=== PATIENT | female | born 1960 | race Caucasian/White ===

== ENCOUNTER → 2017-10-10 | Outpatient (CLI) | payer BC ==
[~2017-10-10] MED LIST: SIMV-13
[2017-10-10 13:09] LABS: Basophils # (auto) 0.1 uL; Basophils % (auto) 0.9 % (0.0-2.0); Eosinophils # (auto) 0.1 uL; Eosinophils % (auto) 2.1 % (0.0-7.0); Hematocrit 44.6 % (36.0-46.0); Lymphocytes # (auto) 2.3 uL; Lymphocytes % (auto) 39.9 % (10.0-50.0); Mean Corpuscular Hemoglobin 28.4 pg (28.0-32.0); Mean Corpuscular Hgb Conc. 33.6 g/dL (32.0-36.0); Mean Corpuscular Volume 84.6 fL (80.0-100.0); Monocytes # (auto) 0.5 uL; Monocytes % (auto) 8.6 % (0.0-12.0); Neutrophils # (auto) 2.8 uL; Neutrophils % (auto) 48.5 % (37.0-80.0); Nucleated Red Blood Cells % 0.1 %; Platelet Count (auto) 277 10^3/uL (140-450); Red Blood Cells 5.27 10^6/uL (4.0-5.20); Red Cell Distribution Width 14.1 % (11.8-14.3); White Blood Cell 5.8 10^3/uL (4.4-10.8)
[2017-10-10 13:31] LABS: Albumin 3.8 g/dL (3.4-5.0); Bilirubin, Total 0.3 mg/dL (0.2-1.0); Calcium 8.3 mg/dL (8.5-10.1); Potassium 3.9 mmol/L (3.5-5.1); Total Protein 7.3 g/dL (6.4-8.2)
== END | disposition home or self-care (01) ==
LOC: LAB 12:14
PROVIDERS: ATTEND Internal Medicine
DX: Z12.11 Encounter for screening for malignant neoplasm of colon (principal); I70.209 Unspecified atherosclerosis of native arteries of extremities, unspecified extremity
CPT/HCPCS: 36415; 80053; 80061; 82274; 82306; 84443; 85025

== ENCOUNTER → 2017-10-14 | Outpatient (CLI) | payer BC | END | disposition home or self-care (01) | LOC: LAB 08:58 | PROVIDERS: ATTEND Internal Medicine | DX: Z12.11 Encounter for screening for malignant neoplasm of colon (principal); I70.209 Unspecified atherosclerosis of native arteries of extremities, unspecified extremity | CPT/HCPCS: 82274 ==

== ENCOUNTER → 2018-06-02 | Day surgery (SDC) | payer BC ==
[2018-05-30 10:24] LABS: Basophils # (auto) 0.1 uL; Basophils % (auto) 1.2 % (0.0-2.0); Eosinophils # (auto) 0.1 uL; Eosinophils % (auto) 1.7 % (0.0-7.0); Hemoglobin 16.1 g/dL (12.2-16.2); Lymphocytes # (auto) 2.1 uL; Lymphocytes % (auto) 28.4 % (10.0-50.0); Mean Corpuscular Hemoglobin 28.8 pg (28.0-32.0); Mean Corpuscular Hgb Conc. 33.5 g/dL (32.0-36.0); Mean Corpuscular Volume 85.7 fL (80.0-100.0); Monocytes # (auto) 0.6 uL; Monocytes % (auto) 8.5 % (0.0-12.0); Neutrophils # (auto) 4.4 uL; Neutrophils % (auto) 60.2 % (37.0-80.0); Nucleated Red Blood Cells % 0.2 %; Platelet Count (auto) 304 10^3/uL (140-450); Red Blood Cells 5.59 10^6/uL (4.0-5.20); Red Cell Distribution Width 13.9 % (11.8-14.3); White Blood Cell 7.4 10^3/uL (4.4-10.8)
[2018-05-30 10:46] LABS: INR 0.98 (0.9-1.15); Partial Thromboplastin Time 26.2 sec (23.78-33.04); Prothrombin Time 10.5 sec (9.27-12.13)
[~2018-06-02] VITALS: Ht 170.2 cm; Wt 111.1 kg
[~2018-06-02] MED LIST changes: +ASCO500T11 PO; +CHOL20007 PO; -SIMV-13; +SODIUM CHLORIDE LOCK 10 ML ONE; +diphenhdrAMINE HCL 50 MG/1 ML VL ONE
[2018-06-02] MEDS: fentaNYL CITRATE 100 MCG/2 ML VL ONE ×3 (11:54→12:02)
[2018-06-02] MEDS: MIDAZOLAM HCL 5 MG/ML-1ML VIAL ONE ×3 (11:54→12:02)
[2018-06-02 12:49] VITALS: BP 137/93
== END | disposition home or self-care (01) ==
LOC: SUR 09:49
PROVIDERS: ATTEND Internal Medicine Gastroenterology
DX: Z12.11 Encounter for screening for malignant neoplasm of colon (principal); K64.8 Other hemorrhoids; E66.9 Obesity, unspecified; Z68.38 Body mass index [BMI] 38.0-38.9, adult; Z87.891 Personal history of nicotine dependence; Z98.890 Other specified postprocedural states
CPT/HCPCS: 36415; 45378; 85025; 85610; 85730; J1200; J2250; J3010; J7030; 99152

== ENCOUNTER 2018-10-30 19:13 | Emergency (ER) | payer BC ==
[~2018-10-30] VITALS: Ht 170.2 cm; Wt 113.4 kg
[~2018-10-30 19:13] MED LIST changes: -SODIUM CHLORIDE LOCK 10 ML ONE; -diphenhdrAMINE HCL 50 MG/1 ML VL ONE
[2018-10-30 20:09] VITALS: BP 164/83
== END 2018-10-30 22:53 | disposition left against medical advice (07) ==
LOC: ER 19:22
DX: H92.02 Otalgia, left ear (principal); Z53.21 Procedure and treatment not carried out due to patient leaving prior to being seen by health care provider

== ENCOUNTER 2018-10-31 09:21 | Emergency (ER) | payer BC ==
[~2018-10-31] VITALS: Ht 170.2 cm; Wt 113.4 kg
[2018-10-31 09:36] VITALS: BP 168/90
== END 2018-10-31 11:43 | disposition home or self-care (01) ==
LOC: ER 09:21
DX: R51 Headache (principal)
CPT/HCPCS: 70450

== ENCOUNTER → 2018-11-29 | Outpatient (CLI) | payer BC ==
[2018-11-29 08:56] LABS: Basophils # (auto) 0.2 uL; Basophils % (auto) 3.5 % (0.0-2.0); Eosinophils # (auto) 0.2 uL; Eosinophils % (auto) 2.6 % (0.0-7.0); Hematocrit 43.8 % (36.0-46.0); Hemoglobin 15.7 g/dL (12.2-16.2); Lymphocytes # (auto) 2.2 uL; Lymphocytes % (auto) 36.6 % (10.0-50.0); Mean Corpuscular Hemoglobin 29.5 pg (28.0-32.0); Mean Corpuscular Hgb Conc. 35.9 g/dL (32.0-36.0); Mean Corpuscular Volume 82.2 fL (80.0-100.0); Monocytes # (auto) 0.4 uL; Monocytes % (auto) 7.3 % (0.0-12.0); Neutrophils # (auto) 3.1 uL; Nucleated Red Blood Cells % 0.5 %; Platelet Count (auto) 284 10^3/uL (140-450); Red Blood Cells 5.32 10^6/uL (4.0-5.20); Red Cell Distribution Width 13.8 % (11.8-14.3); White Blood Cell 6.1 10^3/uL (4.4-10.8)
[2018-11-29 09:24] LABS: Albumin 3.8 g/dL (3.4-5.0); BUN/Creatinine Ratio 15.6; Bilirubin, Total 0.4 mg/dL (0.2-1.0); Calcium 9.1 mg/dL (8.5-10.1); Total Protein 7.7 g/dL (6.4-8.2)
[2018-11-29 09:47] LABS: Potassium 4.1 mmol/L (3.5-5.1)
== END | disposition home or self-care (01) ==
LOC: LAB 08:04
PROVIDERS: ATTEND Internal Medicine
DX: Z00.00 Encounter for general adult medical examination without abnormal findings (principal); E55.9 Vitamin D deficiency, unspecified; I77.1 Stricture of artery
CPT/HCPCS: 36415; 80053; 80061; 82306; 84439; 84443; 85025

== ENCOUNTER → 2020-02-12 | Outpatient (CLI) | payer BC ==
[2020-02-12 08:34] LABS: Basophils # (auto) 0.1 10 ^3/uL (0-0.2); Basophils % (auto) 1.2 % (0.0-2.0); Eosinophils # (auto) 0.2 10 ^3/uL (0-0.8); Eosinophils % (auto) 3.2 % (0.0-7.0); Hemoglobin 15.4 g/dL (12.2-16.2); Lymphocytes # (auto) 2.4 10 ^3/uL (0.4-5.4); Lymphocytes % (auto) 34.9 % (10.0-50.0); Mean Corpuscular Hemoglobin 28.5 pg (28.0-32.0); Mean Corpuscular Hgb Conc. 33.5 g/dL (32.0-36.0); Mean Corpuscular Volume 85.1 fL (80.0-100.0); Monocytes # (auto) 0.5 10 ^3/uL (0-1.3); Monocytes % (auto) 7.6 % (0.0-12.0); Neutrophils # (auto) 3.6 10 ^3/uL (1.6-8.6); Neutrophils % (auto) 53.1 % (37.0-80.0); Nucleated Red Blood Cells % 0.2 %; Platelet Count (auto) 327 10^3/uL (140-450); Red Blood Cells 5.41 10^6/uL (4.0-5.20); Red Cell Distribution Width 14.2 % (11.8-14.3); White Blood Cell 6.9 10^3/uL (4.4-10.8)
[2020-02-12 09:43] LABS: Potassium 4.1 mmol/L (3.5-5.1)
[2020-02-12 09:58] LABS: Albumin 3.7 g/dL (3.4-5.0); BUN/Creatinine Ratio 15.1; Bilirubin, Total 0.3 mg/dL (0.2-1.0); Total Protein 7.6 g/dL (6.4-8.2)
== END | disposition home or self-care (01) ==
LOC: LAB 07:14
PROVIDERS: ATTEND Internal Medicine
DX: Z00.00 Encounter for general adult medical examination without abnormal findings (principal); E78.5 Hyperlipidemia, unspecified; E55.9 Vitamin D deficiency, unspecified; E66.9 Obesity, unspecified
CPT/HCPCS: 36415; 80053; 80061; 82306; 83036; 84443; 85025

== ENCOUNTER → 2020-05-27 | Day surgery (SDC) | payer BC ==
[2020-05-23 09:35] LABS: Basophils # (auto) 0.1 10 ^3/uL (0-0.2); Basophils % (auto) 0.9 % (0.0-2.0); Eosinophils # (auto) 0.1 10 ^3/uL (0-0.8); Hematocrit 45.5 % (36.0-46.0); Hemoglobin 15.4 g/dL (12.2-16.2); Lymphocytes # (auto) 2.2 10 ^3/uL (0.4-5.4); Lymphocytes % (auto) 32.1 % (10.0-50.0); Mean Corpuscular Hemoglobin 28.9 pg (28.0-32.0); Mean Corpuscular Hgb Conc. 33.8 g/dL (32.0-36.0); Mean Corpuscular Volume 85.4 fL (80.0-100.0); Monocytes # (auto) 0.5 10 ^3/uL (0-1.3); Monocytes % (auto) 7.5 % (0.0-12.0); Neutrophils % (auto) 57.5 % (37.0-80.0); Nucleated Red Blood Cells % 0.1 %; Platelet Count (auto) 300 10^3/uL (140-450); Red Blood Cells 5.33 10^6/uL (4.0-5.20); Red Cell Distribution Width 13.5 % (11.8-14.3); White Blood Cell 6.9 10^3/uL (4.4-10.8)
[2020-05-23 09:49] LABS: Urine Bacteria NONE SEEN /hpf (None Seen); Urine Blood Negative /uL (Negative); Urine Specific Gravity 1.011 (1.001-1.035); Urine WBC 2 /hpf (0 - 5)
[2020-05-23 10:07] LABS: INR 1.05 (0.9-1.15); Partial Thromboplastin Time 26.8 sec (23.0-31.2)
[2020-05-23 10:22] LABS: Albumin 3.9 g/dL (3.4-5.0); Calcium 9.2 mg/dL (8.5-10.1)
[2020-05-23 10:25] LABS: BUN/Creatinine Ratio 16.9; Bilirubin, Total 0.4 mg/dL (0.2-1.0); Total Protein 7.6 g/dL (6.4-8.2)
[~2020-05-27] VITALS: Ht 170.2 cm; Wt 111.1 kg
[~2020-05-27] MED LIST changes: -ASCO500T11 PO; +BUPIVACAINE 0.5% MPF INJ 30ML SDV IJ ONE; +LIDOCAINE 2% (LOCAL ANESTH.) PF 5ml SDV ONE; +MIDAZOLAM HCL 1MG/1ML-2 ML VIAL ONE; +ONDANSETRON HCL 4 MG/2 ML VIAL IV ONE; +ONDANSETRON HCL 4 MG/2 ML VIAL IV PRN; +PROPOFOL 10 MG/ML 20 ML IV ONE; +ceFAZolin 1GM/50ML 100 ML IV ONE; +fentaNYL CITRATE 100 MCG/2 ML VL ONE
[2020-05-27 09:00] VITALS: BP 126/68
== END | disposition home or self-care (01) ==
LOC: SUR 06:19
PROVIDERS: ATTEND Orthopaedic Surgery Sports Medicine
DX: M65.311 Trigger thumb, right thumb (principal); G47.30 Sleep apnea, unspecified; E66.01 Morbid (severe) obesity due to excess calories; Z68.38 Body mass index [BMI] 38.0-38.9, adult; Z87.891 Personal history of nicotine dependence; Z20.822 Contact with and (suspected) exposure to COVID-19; Z88.8 Allergy status to other drugs, medicaments and biological substances; Z98.890 Other specified postprocedural states; Z79.899 Other long term (current) drug therapy
CPT/HCPCS: 26055; 36415; 80053; 81001; 85025; 85610; 85730; J0690; J2001; J2250; J2405; J2704; J3010; J3490; U0003

== ENCOUNTER 2020-07-08 08:34 | Day surgery (SDC) | payer BC ==
[2020-07-03 12:57] LABS: Basophils # (auto) 0.1 10 ^3/uL (0-0.2); Eosinophils # (auto) 0.2 10 ^3/uL (0-0.8); Eosinophils % (auto) 3.4 % (0.0-7.0); Hematocrit 45.5 % (36.0-46.0); Hemoglobin 15.3 g/dL (12.2-16.2); Lymphocytes # (auto) 2.2 10 ^3/uL (0.4-5.4); Lymphocytes % (auto) 33.9 % (10.0-50.0); Mean Corpuscular Hgb Conc. 33.6 g/dL (32.0-36.0); Mean Corpuscular Volume 86.3 fL (80.0-100.0); Monocytes # (auto) 0.8 10 ^3/uL (0-1.3); Monocytes % (auto) 11.6 % (0.0-12.0); Neutrophils # (auto) 3.3 10 ^3/uL (1.6-8.6); Neutrophils % (auto) 50.1 % (37.0-80.0); Nucleated Red Blood Cells % 0.2 %; Red Blood Cells 5.27 10^6/uL (4.0-5.20); Red Cell Distribution Width 13.5 % (11.8-14.3); White Blood Cell 6.5 10^3/uL (4.4-10.8)
[2020-07-03 13:10] LABS: Albumin 3.7 g/dL (3.4-5.0); Calcium 9.1 mg/dL (8.5-10.1); Potassium 4.1 mmol/L (3.5-5.1)
[2020-07-03 13:13] LABS: BUN/Creatinine Ratio 17.5; Bilirubin, Total 0.3 mg/dL (0.2-1.0); Total Protein 7.6 g/dL (6.4-8.2)
[2020-07-03 13:15] LABS: INR 1.06 (0.9-1.15); Partial Thromboplastin Time 25.9 sec (23.0-31.2)
[2020-07-04 15:36] LABS: Urine Bacteria NONE SEEN /hpf (None Seen); Urine Blood Negative /uL (Negative); Urine Mucus FEW (None Seen); Urine Specific Gravity 1.022 (1.001-1.035); Urine WBC 2 /hpf (0 - 5)
[~2020-07-08] VITALS: Ht 170.2 cm; Wt 111.1 kg
[~2020-07-08 08:34] MED LIST changes: +ASCO500C5 PO; -BUPIVACAINE 0.5% MPF INJ 30ML SDV IJ ONE; -LIDOCAINE 2% (LOCAL ANESTH.) PF 5ml SDV ONE; -MIDAZOLAM HCL 1MG/1ML-2 ML VIAL ONE; +MULT-976 PO; -ONDANSETRON HCL 4 MG/2 ML VIAL IV ONE; -ONDANSETRON HCL 4 MG/2 ML VIAL IV PRN; -PROPOFOL 10 MG/ML 20 ML IV ONE; -ceFAZolin 1GM/50ML 100 ML IV ONE; -fentaNYL CITRATE 100 MCG/2 ML VL ONE
[2020-07-08] MEDS ORDERED: PROPOFOL 10 MG/ML 20 ML IV ONE (08:42)
[2020-07-08] MEDS ORDERED: MIDAZOLAM HCL 2MG/2ML 2ml VIAL (1mg/ml) ONE (08:42)
[2020-07-08] MEDS ORDERED: LIDOCAINE 2% (LOCAL ANESTH.) PF 5ml SDV ONE (08:42)
[2020-07-08] MEDS ORDERED: SODIUM CHLORIDE LOCK 10 ML ONE (08:42)
[2020-07-08] MEDS ORDERED: fentaNYL CITRATE 100 MCG/2 ML VL ONE (08:42)
[2020-07-08] MEDS ORDERED: ONDANSETRON HCL 4 MG/2 ML VIAL ONE (08:42)
[2020-07-08] MEDS ORDERED: ceFAZolin 1GM/50ML 100 ML IV ONE (08:48)
[2020-07-08] MEDS ORDERED: METOCLOPRAMIDE HCL 5MG/ml INJ 2ml VIAL IV PRN (09:00)
[2020-07-08] MEDS ORDERED: fentaNYL CITRATE 100 MCG/2 ML VL IV PRN (09:00)
[2020-07-08] MEDS ORDERED: MORPHINE SULFATE 4 MG/ML SYR/VIAL IV PRN (09:00)
[2020-07-08] MEDS ORDERED: HYDROmorphone HCL 2 MG/ML VL IV PRN ×2 (09:00)
[2020-07-08] MEDS ORDERED: BUPIVACAINE 0.5% MPF INJ 30ML SDV IJ ONE (09:32)
[2020-07-08 12:00] VITALS: BP 135/79
== END 2020-07-08 12:15 | disposition home or self-care (01) ==
LOC: SUR 08:34
PROVIDERS: ATTEND Orthopaedic Surgery Sports Medicine
DX: M65.312 Trigger thumb, left thumb (principal); I10 Essential (primary) hypertension; G47.33 Obstructive sleep apnea (adult) (pediatric); E66.01 Morbid (severe) obesity due to excess calories; Z20.822 Contact with and (suspected) exposure to COVID-19; Z98.890 Other specified postprocedural states; Z79.899 Other long term (current) drug therapy; Z88.8 Allergy status to other drugs, medicaments and biological substances; Z68.38 Body mass index [BMI] 38.0-38.9, adult; Z87.891 Personal history of nicotine dependence
CPT/HCPCS: 26055; 36415; 80053; 81001; 85025; 85610; 85730; J0690; J2001; J2250; J2405; J2704; J3010; J3490; U0003

== ENCOUNTER → 2020-10-20 | Outpatient (CLI) | payer BC | END | disposition home or self-care (01) | LOC: LAB 09:42 | PROVIDERS: ATTEND Nurse Practitioner Family | DX: U07.1 COVID-19 (principal) | CPT/HCPCS: C9803; U0003 ==

== ENCOUNTER → 2022-02-01 | Outpatient (CLI) | payer BC ==
[2022-02-01 07:59] LABS: Basophils # (auto) 0.1 10 ^3/uL (0-0.2); Basophils % (auto) 0.7 % (0.0-2.0); Eosinophils # (auto) 0.1 10 ^3/uL (0-0.8); Eosinophils % (auto) 1.6 % (0.0-7.0); Hematocrit 46.8 % (36.0-46.0); Hemoglobin 15.6 g/dL (12.2-16.2); Lymphocytes # (auto) 2.6 10 ^3/uL (0.4-5.4); Lymphocytes % (auto) 28.4 % (10.0-50.0); Mean Corpuscular Hemoglobin 28.4 pg (28.0-32.0); Mean Corpuscular Hgb Conc. 33.3 g/dL (32.0-36.0); Mean Corpuscular Volume 85.3 fL (80.0-100.0); Monocytes # (auto) 0.5 10 ^3/uL (0-1.3); Monocytes % (auto) 5.9 % (0.0-12.0); Neutrophils # (auto) 5.7 10 ^3/uL (1.6-8.6); Neutrophils % (auto) 63.4 % (37.0-80.0); Nucleated Red Blood Cells % 0.1 %; Red Blood Cells 5.49 10^6/uL (4.0-5.20)
[2022-02-01 13:05] LABS: Potassium 4.1 mmol/L (3.5-5.1)
[2022-02-01 13:16] LABS: Albumin 3.5 g/dL (3.4-5.0); BUN/Creatinine Ratio 18.1; Bilirubin, Total 0.3 mg/dL (0.2-1.0); Calcium 9.6 mg/dL (8.5-10.1); Total Protein 7.7 g/dL (6.4-8.2)
== END | disposition home or self-care (01) ==
LOC: LAB 07:37
PROVIDERS: ATTEND Internal Medicine
DX: Z00.00 Encounter for general adult medical examination without abnormal findings (principal); I10 Essential (primary) hypertension; Z83.3 Family history of diabetes mellitus
CPT/HCPCS: 36415; 80053; 80061; 83036; 84439; 84443; 85025

== ENCOUNTER 2023-04-02 09:16 | Emergency (ER) | payer BC ==
[~2023-04-02] VITALS: Ht 170.2 cm; Wt 120.2 kg
[~2023-04-02 09:16] MED LIST changes: -ASCO500C5 PO; -MULT-976 PO
[2023-04-02 10:00] VITALS: PULSE 65; RESP 18; O2SAT 95
[2023-04-02 10:43] VITALS: BP 142/74
[2023-04-02] MEDS ORDERED: cefTRIAXone SOD 1,000 MG VL IM ONE (10:45)
[2023-04-02] MEDS ORDERED: KETOROLAC TROMETH 60MG/2ML VIAL IM ONE (10:45)
[2023-04-02] MEDS ORDERED: IBUP-1456 PO (10:47)
[2023-04-02] MEDS ORDERED: CLIN300C70 PO (10:47)
== END 2023-04-02 10:52 | disposition home or self-care (01) ==
LOC: ER 09:16
DX: K04.7 Periapical abscess without sinus (principal); Z98.890 Other specified postprocedural states; Z88.8 Allergy status to other drugs, medicaments and biological substances; Z79.899 Other long term (current) drug therapy
CPT/HCPCS: 96372; 99284; J0696; J1885

== ENCOUNTER 2025-01-24 07:19 | Outpatient (CLI) | payer BC ==
[~2025-01-24 07:19] MED LIST changes: +CLIN1CAP70 PO; +IBUP-1456 PO
[2025-01-24 07:59] LABS: Hematocrit 46.5 % (36.0-46.0); Hemoglobin 15.8 g/dL (12.2-16.2); Mean Corpuscular Hemoglobin 28.4 pg (28.0-32.0); Mean Corpuscular Volume 83.6 fL (80.0-100.0); Nucleated Red Blood Cells % 0.1 %
[2025-01-24 08:02] LABS: Urine Protein, UAD Negative (Negative)
[2025-01-24 09:19] LABS: Alanine Aminotransferase 33 U/L (7-40); Albumin 4.3 g/dL (3.2-4.8); Alkaline Phosphatase 109 U/L (46-116); Anion Gap 13 (5-15); BUN/Creatinine Ratio 17.7 (10.0-20.0); Blood Urea Nitrogen 14 mg/dL (9-23); Calcium 9.5 mg/dL (8.7-10.4); Carbon Dioxide 24 mmol/L (20-31); Chloride 105 mmol/L (98-107); Magnesium 2.0 mg/dL (1.6-2.6); Potassium 4.2 mmol/L (3.5-5.1); Sodium 142 mmol/L (136-145); Total Protein 7.3 g/dL (5.7-8.2); Uric Acid 6.6 mg/dL (3.1-7.8)
[2025-01-24 09:20] LABS: Bilirubin, Total 0.5 mg/dL (0.2-1.0)
[2025-01-24 09:25] LABS: Glucose 110 mg/dL (74-106)
[2025-01-24 12:28] LABS: Microalb/Creat Ratio, Urine < 3.0
[2025-01-24 12:42] LABS: HDL Cholesterol 44 mg/dL (40-59)
[2025-01-24 12:57] LABS: Triglycerides 191 mg/dL (< 150)
[2025-01-24 12:58] LABS: Cholesterol 220 mg/dL (< 200)
== END 2025-01-24 17:00 | disposition home or self-care (01) ==
LOC: LAB 07:19
PROVIDERS: ATTEND Family Medicine
DX: I10 Essential (primary) hypertension (principal); M17.9 Osteoarthritis of knee, unspecified; Z12.11 Encounter for screening for malignant neoplasm of colon; Z00.01 Encounter for general adult medical examination with abnormal findings; Z68.41 Body mass index [BMI] 40.0-44.9, adult
CPT/HCPCS: 36415; 80053; 80061; 81001; 82043; 82570; 83036; 83735; 84443; 84550; 85025